=== PATIENT | female | born 1975 | race Caucasian/White ===

== ENCOUNTER → 2020-10-03 07:33 | Outpatient (CLI) | payer OTHER, SELFPAY ==
--- NOTE | ~2020-10-03 | US_ITS ---
US transvaginal DATE: 10/03/2020 08:11 INDICATION: Abnormal uterine bleeding TECHNIQUE: Real-time imaging via transvaginal approach COMPARISON: 02/03/2015 pelvic ultrasound FINDINGS: The uterus measures approximately 9 cm height, 5.4 cm transverse and 4.8 cm anteroposterior dimension. The central endometrial echo complex measures 6.4 mm AP dimension. There is an approximately 2.1 cm uterine fibroid with calcification. Approximately 4 cm right ovarian cyst with through transmission posterior enhancement. There is are o therwise unremarkable. No abnormal pelvic free fluid collection is noted. IMPRESSION: 4 cm right ovarian cyst Reviewed, dictated and finalized at [facility] Reviewed, dictated and finalized at [facility]. IMPRESSION: 4 cm right ovarian cyst
== END ==
PROVIDERS: Visit Provider Nurse Practitioner
DX: N93.8 Other specified abnormal uterine and vaginal bleeding (principal); N92.0 Excessive and frequent menstruation with regular cycle; N85.2 Hypertrophy of uterus; N83.201 Unspecified ovarian cyst, right side
CPT/HCPCS: 76830

== ENCOUNTER → 2020-10-30 01:54 | Outpatient (CLI) | payer OTHER, SELFPAY ==
[2020-10-30 19:39] LABS: SARS-CoV-2 RNA PCR Negative
== END ==
PROVIDERS: Visit Provider Obstetrics & Gynecology Gynecology
DX: Z01.812 Encounter for preprocedural laboratory examination (principal); Z20.822 Contact with and (suspected) exposure to COVID-19
CPT/HCPCS: C9803; U0003; U0005

== ENCOUNTER 2020-11-02 00:54 | Day surgery (SDC) | payer OTHER, SELFPAY ==
[2020-10-16 13:41] VITALS: BMI 31.1
--- NOTE | 2020-11-02 07:35 | WPDHPUPDATE1 ---
History and Physical Update Update Date/Time: 11/02/20 07:35 History and Physical has been reviewed, including an updated exam of the patient. There are NO changes in the patient's condition. Risks, benefits, and alternatives have been discussed and questions answered. Patient agrees to proceed with procedure.
--- NOTE | 2020-11-02 07:35 | PM.HPGS ---
History of Present Illness History of Present Illness Consent: Risks, benefits, and alternatives have been discussed and questions answered. Patient agrees to proceed with procedure. Chief complaint: menorrhagia, fibroids Narrative: India Daley is a 45 year old female was cycles progressively worsening since March of 2020. She states she is changing a pad every 1-1/2 hours for approximately 2 days with large clots. The patient's cycle lasts for 7 to 8 days and she has had increased cramping as well. On exam September 21, 2020 the patient reported these complaints and on exam was noted to have her IUD expelling. The IUD was removed. Ultrasound was performed revealing a 2.1cm fibroid and an otherwise normal appearing uterus. It was recommended to proceed with D&C hysteroscopy to evaluate the change in bleeding pattern. Risks of infection, bleeding, and perforation were reviewed. Possible pathology was also discussed. Review of Systems Review of Systems: Narrative: not repeated day of surgery; patient states no changes in status [facility] Surgical History Surgical History (Updated 11/02/20 @ 07:38 by Delores Christina MD) S/P appendectomy S/P breast biopsy fibroadenoma S/P S/P tonsillectomy Social History Social History Years smoked: 3 Smoking status: Former smoker Smoking end date: 07/17/05 Alcohol intake: current Alcohol use details: 3/MONTH Substance use: never Substance use type: does not use Living arrangements: with family Spiritual care concerns: No Meds Home Medications and Allergies Home Medications Medication Instructions Recorded Confirmed Type No Home Medications 10/16/20 10/16/20 History Allergies Allergy/AdvReac Type Severity Reaction Status Date / Time clindamycin Allergy Severe Trouble Verified 10/16/20 13:40 breathing Penicillins Allergy Mild Rash Verified 10/16/20 13:40 Exam Const: General: comfortable and no acute distress Resp: Effort & Inspection: normal respiratory effort Auscultation: clear to auscultation bilaterally Cardio: Rate: regular rate Rhythm: regular rhythm GI: Inspection: normal to inspection GI Palp: No abdominal tenderness : External Female Exam: normal external appearance Speculum Exam - Vagina: normal appearance of the vagina Speculum Exam - Cervix: normal appearance of the cervix Bimanual exam- vagina & uterus: normal bimanual exam Bimanual Exam- Adnexa, other: normal adnexae Assessment and Plan Assessment and plan (1) Menorrhagia: Code(s): N92.0 - Excessive and frequent menstruation with regular cycle Status: Acute Assessment and Plan: plan to proceed with hysteroscopy with D&C and possible myosure
[2020-11-02 08:40] VITALS: BP 140/96; PULSE 95; RESP 18; TEMP 36.8; O2SAT 100
--- NOTE | 2020-11-02 08:54 | WPDANESEPPF ---
Anes - Initial Pre Proc Eval Procedure: Operation Date: 11/02/20 10:30 Proposed Procedures p Hysteroscopy Dilation and Curettage With Possible Myosure - Delores Christina MD Date/Time: 11/02/20 08:54 Surgeon: Delores Christina MD Pre Op Diagnosis: menorrhagia, fibroids Patient Data Age: 45 Gender: F Height: 5 ft 3 in Weight: 80.6 kg Last Vital Signs Temp 36.8 C 11/02/20 08:40 Pulse 95 11/02/20 08:40 Resp 18 11/02/20 08:40 BP 140/96 H 11/02/20 08:40 Pulse Ox 100 11/02/20 08:40 Allergies Allergy/AdvReac Type Severity Reaction Status Date / Time clindamycin Allergy Severe Trouble Verified 11/02/20 08:45 breathing Penicillins Allergy Mild Rash Verified 11/02/20 08:45 Home Medications Medication Instructions Recorded Confirmed Type No Home Medications 10/16/20 11/02/20 History Patient hx anesthesia problems: none Family hx anesthesia problems: none [facility] Past Medical History Medical History (Updated 11/02/20 @ 08:54 by Farhad Gonzales MD) Obesity Surgical History Surgical History S/P appendectomy S/P breast biopsy fibroadenoma S/P S/P tonsillectomy Social History Social History Years smoked: 3 Smoking status: Former smoker Smoking end date: 07/17/05 Alcohol intake: current Alcohol use details: 3/MONTH Substance use: never Substance use type: does not use Living arrangements: with family Spiritual care concerns: No Anes - Eval Final PreProcedure Day of Procedure 11/02/20 08:54 Patient weight: obese Heart: regular rate and rhythm Lungs: clear to auscultation Airway: Mallampati scale class II Neurological: alert and oriented Last oral intake: >/= 8 hours ASA classification: II Emergent: no Anesthetic plan: proceed Anesthesia type and monitoring: general GIVS and standard monitoring Informed Consent: The patient's anesthetic plan and its attendant risks and benefits were discussed with the patient/family/POA. Questions were solicited and answers provided to the satisfaction of the patient/family/POA.
[2020-11-02] MEDS: ACETAMINOPHEN 500 MG TABLET 1000 MG PO (09:11)
[2020-11-02] MEDS: LACTATED RINGERS 1,000 ML 30 ML IV CONT ×3 (09:15→11:44)
--- NOTE | 2020-11-02 11:36 | PM.PROC ---
Procedure Note - Detailed Date of procedure: 11/02/20 Pre-op diagnosis: menorrhagia, fibroids Post-op diagnosis: same Procedure performed: D&C hysteroscopy with myosure Description of procedure: The patient is taken to the operating room and placed under anesthesia in the dorsal lithotomy position. She is prepped and draped in the usual sterile fashion. [place] speculum was placed in the vagina and the cervix is grasped on the anterior lip with a tenaculum. The cervix is injected with lidocaine in each quadrant. The uterus is sounded to 12cm. The cervix is serially dilated with Hegar to an 8. The diagnostic hysteroscope was placed with a large fibroid noted. The MyoSure device is opened and placed. A large portion of the myoma is removed with the MyoSure device. Once there are jagged edges of the myoma, myoma grasper was used to remove a significant portion of the myoma as well. The fluid became unbalanced with a 700cc fluid deficit therefore the MyoSure device was no longer used. I was no longer able to grasp any myoma pieces with the graspers. Medium sharp curette is used to sharply curette the endometrium. Minimal materials obtained with curetting. The hysteroscope was replaced and the fibroid is noted to be less than half of its prior size. All instruments are removed and the patient awakened from anesthesia. Sponge, needle, and instrument counts are correct per the OR staff. The fluid in is 5300 fluid out is 4600. Anesthesia: MAC and local Surgeon: Delores Christina MD Estimated blood loss (mL): 25 Drains: No Packing: No Pathology: yes (endometrial curettings, shavings, myoma pieces) Complications: No immediate complications Condition: stable Disposition: PACU Findings: large fibroid filling much of endometrial cavity; uterus sounds to 12 cm
[2020-11-02 11:44] VITALS: BP 120/89; PULSE 86; RESP 16; TEMP 36.3; O2SAT 96
[2020-11-02 12:10] VITALS: BP 130/83; PULSE 88; RESP 16
[2020-11-02 12:45] VITALS: BP 124/81; PULSE 90; RESP 16
== END 2020-11-02 12:54 | disposition home or self-care (01) ==
PROVIDERS: Visit Provider Obstetrics & Gynecology Gynecology
PROC: 0U5B8ZZ Destruction of Endometrium, Via Natural or Artificial Opening Endoscopic (ICD-10-PCS; CPT 58563; principal; 2020-11-02 10:30)
DX: N92.0 Excessive and frequent menstruation with regular cycle (principal); N85.8 Other specified noninflammatory disorders of uterus; Z87.891 Personal history of nicotine dependence; E66.9 Obesity, unspecified; Z68.31 Body mass index [BMI] 31.0-31.9, adult; D25.0 Submucous leiomyoma of uterus
CPT/HCPCS: 58561; 88305; A9270; C9803; J2250; J2704; J3010; J7030; J7120; U0003; U0005

== ENCOUNTER → 2020-11-21 11:27 | Outpatient (CLI) | payer OTHER, SELFPAY ==
--- NOTE | ~2020-11-21 | MM_ITS ---
EXAMINATION: MM screening [facility] HISTORY: Screening mammogram TECHNIQUE: Craniocaudal and mediolateral oblique 3-D tomosynthesis images were obtained and synthetic 2-D images were generated. CAD analysis was submitted and interpreted. COMPARISON: 03/23/2019, 02/24/2018, 02/06/2016 BREAST PARENCHYMAL COMPOSITION: The breasts are heterogeneously dense, which may obscure small masses . FINDINGS: There is no evidence of suspicious mass, calcification, or architectural distortion to sugg est malignancy in either breast. There has been no suspicious interval change. IMPRESSION: 1. No mammographic evidence of malignancy. 2. Recommend routine screening mammography in one year. BI-RADS Category 1: Negative Reviewed, dictated and finalized at [facility].
== END ==
PROVIDERS: Visit Provider Nurse Practitioner
DX: Z12.31 Encounter for screening mammogram for malignant neoplasm of breast (principal)
CPT/HCPCS: 77063; 77067

== ENCOUNTER → 2020-11-28 07:28 | Outpatient (CLI) | payer OTHER, SELFPAY ==
--- NOTE | ~2020-11-28 | US_ITS ---
EXAMINATION: US transvaginal EXAM DATE: 11/28/2020 08:05 INDICATION: Ovarian cyst follow-up on the right side. Fibroid removed. TECHNIQUE: Pelvic transvaginal sonogram was performed. There are multiple grayscale and Doppler imag es available for interpretation. Comparison is made to prior examination from 10/03/2020. FINDINGS: Uterus measures 9.0 x 2.9 x 4.5 cm, and is morphologically normal. Endometrial stripe fareed sures 6 mm, within normal limits. There are nabothian cysts. There is no free pelvic fluid. Right adnexa: The ovary measures 2.1 x 3.2 x 1.8 cm and is morphologically normal. Ovarian vascular f low confirmed. Left adnexa: The ovary measures 2.4 x 1.4 x 1.8 cm and is morphologically normal. Ovarian vascular fl ow confirmed. IMPRESSION: 1. Resolution of previously seen 5 cm right ovarian cyst. 2. Unremarkable exam. Reviewed, dictated and finalized at [facility].
== END ==
PROVIDERS: Visit Provider Obstetrics & Gynecology Gynecology
DX: N83.209 Unspecified ovarian cyst, unspecified side (principal)
CPT/HCPCS: 76830

== ENCOUNTER → 2021-12-11 09:45 | Outpatient (CLI) | payer OTHER, SELFPAY ==
--- NOTE | ~2021-12-11 | MM_ITS ---
EXAMINATION: MM screening [facility] HISTORY: Screening TECHNIQUE: Craniocaudal and mediolateral oblique 3-D tomosynthesis images were obtained and synthetic 2-D images were generated. CAD analysis was submitted and interpreted. COMPARISON: Comparison to multiple prior studies sequentially, with oldest reviewed study dated 10/07. BREAST PARENCHYMAL COMPOSITION: Breast composed of scattered areas of fibroglandular density FINDINGS: There is no evidence of suspicious mass, calcification, or architectural distortion to sugg est malignancy in either breast. There has been no suspicious interval change. IMPRESSION: 1. No mammographic evidence of malignancy. 2. Recommend routine screening mammography in one year. BI-RADS Category 1: Negative Reviewed, dictated and finalized at [facility].
== END ==
PROVIDERS: PCP Obstetrics & Gynecology Gynecology; Visit Provider Nurse Practitioner
DX: Z12.31 Encounter for screening mammogram for malignant neoplasm of breast (principal)
CPT/HCPCS: 77063; 77067

== ENCOUNTER → 2023-02-18 07:46 | Outpatient (CLI) | payer OTHER, SELFPAY ==
--- NOTE | ~2023-02-18 | MM_ITS ---
EXAMINATION: MM screening [facility] BI w betsey HISTORY: Screening mammogram TECHNIQUE: Craniocaudal and mediolateral oblique 3-D tomosynthesis images were obtained and synthetic 2-D images were generated. CAD analysis was submitted and interpreted. COMPARISON: 12/03/2021, 11/21/2020, 04/02/2019 BREAST PARENCHYMAL COMPOSITION: There are scattered areas of fibroglandular density. FINDINGS: No suspicious mass, calcification, or architectural distortion are identified in either trevor ast to suggest malignancy. There has been no suspicious interval change. IMPRESSION: 1. No mammographic evidence of malignancy. 2. Recommend routine screening mammography in one year. BI-RADS Category 1: Negative Reviewed, dictated and finalized at [facility].
== END ==
PROVIDERS: PCP Internal Medicine; Visit Provider Nurse Practitioner
DX: Z12.31 Encounter for screening mammogram for malignant neoplasm of breast (principal)
CPT/HCPCS: 77063; 77067

== ENCOUNTER 2024-07-20 08:13 | Outpatient (CLI) | payer BC, SELFPAY ==
--- NOTE | ~2024-07-20 | MM_ITS ---
EXAMINATION: MM screening [facility] HISTORY: Screening mammogram TECHNIQUE: Craniocaudal and mediolateral oblique 3-D tomosynthesis images were obtained and synthetic 2-D images were generated. CAD analysis was submitted and interpreted. COMPARISON: 02/18/2023, 12/11/2021 bilateral screening mammogram examinations BREAST PARENCHYMAL COMPOSITION: There are scattered areas of fibroglandular density. FINDINGS: There is no evidence of suspicious mass, calcification, or architectural distortion to sugg est malignancy in either breast. There has been no suspicious interval change. IMPRESSION: 1. No mammographic evidence of malignancy. 2. Recommend routine screening mammography in one year. BI-RADS Category 1: Negative Reviewed, dictated and finalized at [facility]. [facility]
== END 2024-07-20 08:14 | disposition home or self-care (01) ==
LOC: MICIMG 08:15
PROVIDERS: PCP Internal Medicine; Visit Provider Nurse Practitioner Women's Health
DX: Z12.31 Encounter for screening mammogram for malignant neoplasm of breast (principal)
CPT/HCPCS: 77063; 77067